=== PATIENT | male | born 1980 | race Caucasian/White ===

== ENCOUNTER 2023-08-16 22:27 | Emergency (ER) | payer SELFPAY ==
--- NOTE | 2023-08-16 22:41 | ED.GENADUL1 ---
HPI HPI - General Adult General Stated complaint: DEHYDRATION Time Seen by Provider: 08/16/23 22:40 History of Present Illness HPI narrative: 42-year-old male to the emergency department chief complaint of episode of confusion. Patient is accompanied by his 2 friends. Earlier in the day the patient was out in the heat and seem to be staggering and confused. They gave the patient to cold showers and he drank some water and seemed improved. Friends brought him to the emergency department for evaluation. Patient reports he feels fine and does not want to be seen. He has no complaints at this time. Related Data Allergies Allergy/AdvReac Type Severity Reaction Status Date / Time No Known Drug Allergies Allergy Verified 08/16/23 22:44 Opioid HPI Opioid Management Most Recent Opioid Data: No Data to Display Review of Systems ROS Status of ROS 10 or more systems reviewed and unremarkable except as noted in history and below Exam Narrative Exam Narrative: VITALS: I have reviewed the triage vital signs. GENERAL: Well developed, well appearing adult in no acute distress. NEURO: Alert and oriented x4. Moves all extremities. Face is symmetric and expressive. Normal gait. EYES: PERRL. No scleral icterus or conjunctival injection. No discharge. HENT: Normocephalic, atraumatic. Hearing is grossly intact. Nares grossly patent and without discharge. Mucous membranes moist. NECK: No JVD. Patient moves neck without restriction. CARDIO: Rhythm regular. Normal rate. No murmur, rub, or gallop. Pulses equal bilaterally in the upper and lower extremity. No lower extremity edema. PULM: Lungs clear to auscultation in all gonzalez. No wheezes, rales, or rhonchi. No conversational dyspnea. No splinting, stridor, or accessory muscle use. GI/: Abdomen is soft and non-tender. Normoactive bowel sounds. EXTREMITIES: Symmetric muscle bulk. No joint swelling. No clubbing, cyanosis, or deformity. SKIN: Warm and dry. Normal turgor. No rash or lesions appreciated. PSYCH: Mood, affect, and interaction is appropriate to the setting. Medical Decision Making MDM Narrative Medical decision making narrative: 42-year-old male to the emergency department with altered mental status complaint. Vital stable, the patient is afebrile. I was called to triage room by nursing staff to evaluate the patient as he does not wish to be seen. Patient is alert and oriented. Does not appear to be under the influence of any drugs or alcohol. His speech content is normal. He is making jokes and laughing. He has a normal gait. No neurologic deficits. He did allow a history and physical exam to be performed. There is no evidence of an acute medical emergency suggested by my history or physical exam. His vitals are normal. Patient would like to leave. The patient was allowed to exit the department with his friends. Discharge Plan Discharge Stand Alone Forms: Portal Instructions Chief Complaint: Altered Mental Status Clinical Impression: Encounter for medical screening examination Patient Disposition: Left Against Medical Advice Time of Disposition Decision: 22:46 Condition: Good Mode of Transportation: Private Vehicle Print Language: Mozambican Referrals: Physician,Non-Staff, MD [Primary Care Provider] - 1 week
[2023-08-16 22:44] VITALS: BP 129/81; PULSE 95; TEMP 36.8; O2SAT 97
--- NOTE | 2023-08-16 22:47 | PC.NURSE ---
Pt presents with friends who state that the pt was not acting right at home so they believe he is having a stroke Pt is loud and sarcastic in his words but allows this nurse and Dr. Hernandez to get vitals and perform an exam Pt is A&Ox4 and ambulates without a problem Pt states he does not need to be here Dr. Hernandez agree's the pt is alert and oriented and does not need to be seen further
== END 2023-08-16 22:47 | disposition left against medical advice (07) ==
PROVIDERS: Emergency Provider Student in an Organized Health Care Education/Training Program
DX: Z53.21 Procedure and treatment not carried out due to patient leaving prior to being seen by health care provider (principal)

== ENCOUNTER 2024-07-20 17:47 | Emergency (ER) | payer SELFPAY ==
--- OUTSIDE RECORDS SUMMARY | 2024-07-20 17:54 | XMS_ITS | Patient Health Record ---
Author Organization [facility] es Address [address] [place] [address] Care Team Providers Care Vitreo Retinal Surgeon Name Role Phone Dani Farr Primary Care Provider Reason For Referral No Information Medications Medication SIG (Take, Route, Frequency, Duration) Notes Start Date End Date Status methylPREDNISolone 4 MG as directed Orally 017 Not-Taking Naproxen 500 MG 1 tablet as needed Orally every 12 hrs Active CeleXA 20 MG 1 tablet Orally Once a day for 30 day(s) 10/28/2016 Active Social History Tobacco Use: Social History Observation Description Date Details (start date - stop date) Current Smoker NA - NA Tobacco Screen: Question Answer Notes Are you a: current smoker How often do you smoke cigarettes? some days, bu t not every day How many cigarettes a day do you smoke? 6-10 How soon after you wake up d o you smoke your first cigarette? after 60 min Are you interested in quitting? Not ready to serjio t Sexual Hx: Question Answer Notes Had sex in the last 12 months (vaginal, oral, or anal)? Yes with Women only Use protection? No Prevention Strategies discussed: Abstinence Have you ever had an STD? No Alcohol Screening: Question Answer Notes Did you have a drink containing alcohol in the p ast year? No Depression Screening (PHQ-2): Question Answer Notes Little interest or pleasure in doing things No Feeling down depressed or hopeless No Problems Problem Type SNOMED Code ICD Code Onset Dates Problem Status W/U Status Risk Notes Problem Mixed anxiety and depressive disorder (853021382) Anxiety and depression (F41.9) Active confirmed Problem Anxiety state (145040058) Acute anxiety (F41.9) Active confirmed Plan Of Treatment No Information Insurance Providers Payer Name Payer Address Payer Phone Subscriber Number Group Number Insured Name Patient Relationship to Insured Coverage Start Date Coverage End Date [facility] [address] [address] [place] [address] [id number] REECE WILSON Self - patient is the insured zMEDICAID C[employer] after [facility]-te rmed [address] [place] [address] [id number] REECE WILSON Self - patient is the insured Medical (General) History Medical History History ICD Code ANXIETY DEPRESSION
[2024-07-20 17:59] VITALS: BP 137/86; PULSE 103; TEMP 37.2; O2SAT 98; BMI 31.9
--- NOTE | 2024-07-20 18:03 | XR_ITS ---
The [address] [address] Patient Name: REECE JAMES MRN: [id number] date: 1980 Sex: M Assigned Patient Location: ER Current Patient Location: ER Accession/Order Number: [id number] Exam Date: 07/20/2024 18:43 Report Date: 07/20/2024 18:46 At the request of: IRWIN MARTIN MD Procedure: XR foot RT min 3V 3 views left foot plain film COMPARISON:None HISTORY: Rolled left ankle this morning. Swelling ACUTE FINDINGS: There is concern for acute fracture involving the base of the second metatarsal. DEGENERATIVE CHANGE: Unremarkable SOFT TISSUE FINDINGS: Unremarkable JOINT EFFUSION: None POSTOP CHANGES: None BONE MINERALIZATION: Adequate XR/XR foot RT min 3V IMPRESSION: Concern for acute fracture involving the base of the second metatarsal. Correlate with site of pain. May correlate with a Lisfranc injury. Impression dictated by: Charan Roque M.D. 07/20/2024 6:46 PM Dictation Location: [place] [address] Electronically authenticated by: [id number] Y Date: 07/20/2024 18:46
--- NOTE | 2024-07-20 18:03 | XR_ITS ---
The [address] [address] Patient Name: REECE JAMES MRN: [id number] date: 1980 Sex: M Assigned Patient Location: ER Current Patient Location: ER Accession/Order Number: [id number] Exam Date: 07/20/2024 18:42 Report Date: 07/20/2024 18:43 At the request of: IRWIN MARTIN MD Procedure: XR ankle RT min 3V 3 views left ankle plain film COMPARISON: None HISTORY: Rolled left ankle. Swollen. ACUTE FINDINGS: None DEGENERATIVE CHANGE: Unremarkable SOFT TISSUE FINDINGS: Lateral soft tissue swelling JOINT EFFUSION: None POSTOP CHANGES: None BONE MINERALIZATION: Adequate XR/XR ankle RT min 3V IMPRESSION: Lateral soft tissue swelling without acute displaced fracture seen. Impression dictated by: Charan Roque M.D. 07/20/2024 6:43 PM Dictation Location: [place] [address] Electronically authenticated by: [id number] Y Date: 07/20/2024 18:43
--- NOTE | 2024-07-20 18:09 | ED_ITS ---
HPI HPI - Extremity Injury (Lower) General Chief Complaint: Extremity Injury, Lower Stated Complaint: LEFT LOWER EXTREMITY INJURY Time Seen by Provider: 07/20/24 17:58 Source: patient Limitations: no limitations History of Present Illness HPI Narrative: 43-year-old male presents to the emergency department for a chief complaint of right foot and ankle pain. This morning he was walking in his house with flip-flops on and the flip-flop got caught on a piece of metal at the threshold of the door when any fell and he twisted his ankle. No other injury was sustained. Its become swollen and it hurts when he walks and he describes the pain is moderate. Related Data Home Medications ?Medication ?Instructions ?Recorded ?Confirmed No Known Home Medications 07/20/2406/30 Allergies Allergy/AdvReac Type Severity Reaction Status Date / Time No Known Drug Allergies Allergy Verified 07/20/24 18:03 Opioid HPI Opioid Management Most Recent Pain and Opioid Data: Last Pain Scale 10 Today, 17:59 Review of Systems ROS Narrative A ten point review of systems is negative except as noted above. PFSH PFSH Social History Little interest or pleasure in doing things: not at all Feeling down, depressed, or hopeless: not at all Exam Narrative Exam Narrative: Nurses note and vital signs reviewed and patient is not hypoxic. General: The patient appears well and in no apparent distress. Patient is resting comfortably on cart. Skin: Warm, dry, no pallor noted. There is no rash noted. Head: Normocephalic, atraumatic Eye: Normal conjunctiva, no drainage, Ears, Nose, Mouth, and Throat: oral mucosa is moist. Nares patent. Cardiovascular: Regular Rate and Rhythm Respiratory: Patient is in no distress, no accessory muscle use Back: non-tender GI: Soft and nontender Musculoskeletal: He has some tenderness on the lateral aspect of his left foot and some swelling over the lateral malleolus. Skin is intact. Knee has good range of motion and no swelling or focal area of tenderness. Neurological: A&O, normal speech Psychiatric: Cooperative Constitutional Vital Signs, click to edit/add: Last Vital Signs Temp 99 F 07/20/24 17:59 Pulse 103 H 07/20/24 17:59 Resp 14 07/20/24 17:59 BP 137/86 07/20/24 17:59 Pulse Ox 98 07/20/24 17:59 O2 Del Method Room Air 07/20/24 17:59 Course Vital Signs Vital signs: Vital Signs Temperature 99 F 07/20/24 17:59 Pulse Rate 103 H 07/20/24 17:59 Respiratory Rate 14 07/20/24 17:59 Blood Pressure 137/86 07/20/24 17:59 Pulse Oximetry 98 07/20/24 17:59 Oxygen Delivery Method Room Air 07/20/24 17:59 Temperature 99 F 07/20/24 17:59 Pulse Rate 103 H 07/20/24 17:59 Respiratory Rate 14 07/20/24 17:59 Blood Pressure 137/86 07/20/24 17:59 Pulse Oximetry 98 07/20/24 17:59 Oxygen Delivery Method Room Air 07/20/24 17:59 MDM - Extremity Injury (Lower) MDM Narrative Medical decision making narrative: X-rays per radiologist are suspicious for second metatarsal fracture of the left foot. CT scan is ordered and is pending and the patient is signed out to Dr. Joseph. Differential Diagnosis Differential diagnosis: Likely other (Sprain, fracture) Imaging Data Foot, ankle x-ray: Radiologist's impression: ITS Impressions Ankle X-Ray 07/20/24 18:03 IMPRESSION: Lateral soft tissue swelling without acute displaced fracture seen. Impression dictated by: Charan Roque M.D. 07/20/2024 6:43 PM Dictation Location: [employer] Electronically authenticated by: [id number] Y Date: 07/20/2024 18:43 Foot X-Ray 07/20/24 18:03 IMPRESSION: Concern for acute fracture involving the base of the second metatarsal. Correlate with site of pain. May correlate with a Lisfranc injury. Impression dictated by: Charan Roque M.D. 07/20/2024 6:46 PM Dictation Location: [employer] Electronically authenticated by: [id number] Y Date: 07/20/2024 18:46 Discharge Plan Discharge Patient Disposition: Still a Patient
--- NOTE | 2024-07-20 18:13 | PC.NURSE ---
Pain to left ankle, swelling noted to left outer ankle, no redness or bruising noted. Skin to left foot and leg pink and warm and pulses present. Ice pack applied.
--- NOTE | 2024-07-20 18:55 | CT_ITS ---
The [address] [address] Patient Name: REECE JAMES MRN: [id number] date: 1980 Sex: M Assigned Patient Location: ED.MAIN Current Patient Location: ED.MAIN Accession/Order Number: [id number] Exam Date: 07/20/2024 19:30 Report Date: 07/20/2024 19:48 At the request of: IRWIN MARTIN MD Procedure: CT foot RT wo con CT right foot without contrast TECHNIQUE: The CT exam was performed using one or more the following dose reduction techniques: Automated exposure control, adjustment of the MA and/or Kv according to patient size, or use of the iterative reconstruction technique. COMPARISON: Concern for second metatarsal fracture HISTORY: Left foot pain Nondisplaced posterior malleolus fracture identified. This extends into the distal tibiofibular syndesmosis. Lateral soft tissue swelling. Lateral malleolus intact. Medial malleolus intact. The talus intact. The calcaneus intact. Cuboid intact. Tiny fracture of the lateral portion of the lateral cuneiform present. Navicular intact. Mildly displaced fracture of the medial aspect of the base of the second metatarsal identified. Nondisplaced fracture of the base of the fourth metatarsal identified. The middle and medial cuneiforms intact. The phalanges intact. CT/CT foot RT wo con IMPRESSION: Fracture of the base of the second metatarsal. concern for Lisfranc injury. Nondisplaced fracture base of the fourth metatarsal. Distal lateral corner fracture of the lateral cuneiform. Nondisplaced posterior malleolus fracture of the tibia. This extends into the syndesmosis. . Impression dictated by: Charan Roque M.D. 07/20/2024 7:48 PM Dictation Location: [facility] Electronically authenticated by: [id number] Y Date: 07/20/2024 19:48
[2024-07-20] MEDS: OXYCODONE HCL/ACETAMINOPHEN 5MG/325MG 1 TAB PO (19:19)
[2024-07-20] MEDS: ONDANSETRON 4 MG RAPDIS TABLET SL (19:19)
--- NOTE | 2024-07-20 20:15 | ED.LOWEXI1 ---
HPI HPI - Extremity Injury (Lower) General Chief Complaint: Extremity Injury, Lower Stated Complaint: LEFT LOWER EXTREMITY INJURY Time Seen by Provider: 07/20/24 17:58 Source: patient Limitations: no limitations History of Present Illness HPI Narrative: This 43-year-old male was signed out to me at shift change pending CT scan of the left lower extremity. Patient was seen and examined. He has diffuse pain in his left foot and lateral malleolus with some mild bruising over the midfoot. Pulses are brisk. He is able to move his toes but this causes him pain. He was medicated with a dose of Percocet with mild relief and then given a dose of Dilaudid. CT scan of the left foot shows a fracture of the base of the second metatarsal with concern for Lisfranc injury with nondisplaced fracture of the base of the fourth metatarsal distal lateral corner fracture of the lateral cuneiform and nondisplaced posterior malleolus fracture of the tibia that extends into the syndesmosis. Call was placed to Dr. Borjas. He will see the patient in consult. The patient was placed in a posterior splint for immobilization and given crutches for ambulation. I explained to him that the splint needs to stay in place and he will need to follow-up closely with Dr. Conteh Related Data Home Medications ?Medication ?Instructions ?Recorded ?Confirmed No Known Home Medications 07/20/24 07/20/24 Allergies Allergy/AdvReac Type Severity Reaction Status Date / Time No Known Drug Allergies Allergy Verified 07/20/24 18:03 Opioid HPI Opioid Management Most Recent Pain and Opioid Data: Last Pain Scale 8 Today, 20:18 Last MAR Pain Assessment Today, 19:19 PFSH PFSH Social History Little interest or pleasure in doing things: not at all Feeling down, depressed, or hopeless: not at all Exam Constitutional Vital Signs, click to edit/add: Last Vital Signs Temp 99 F 07/20/24 17:59 Pulse 103 H 07/20/24 17:59 Resp 14 07/20/24 17:59 BP 137/86 07/20/24 17:59 Pulse Ox 98 07/20/24 17:59 O2 Del Method Room Air 07/20/24 17:59 Course Vital Signs Vital signs: Vital Signs Temperature 99 F 07/20/24 17:59 Pulse Rate 103 H 07/20/24 17:59 Respiratory Rate 14 07/20/24 17:59 Blood Pressure 137/86 07/20/24 17:59 Pulse Oximetry 98 07/20/24 17:59 Oxygen Delivery Method Room Air 07/20/24 17:59 Temperature 99 F 07/20/24 17:59 Pulse Rate 103 H 07/20/24 17:59 Respiratory Rate 14 07/20/24 17:59 Blood Pressure 137/86 07/20/24 17:59 Pulse Oximetry 98 07/20/24 17:59 Oxygen Delivery Method Room Air 07/20/24 17:59 Discharge Plan Discharge Chief Complaint: Extremity Injury, Lower Clinical Impression: Acute pain of left foot, Foot fracture, left, Ankle fracture, left Patient Disposition: Home, Self-Care Time of Disposition Decision: 20:49 Condition: Good Prescriptions / Home Meds: No Action No Known Home Medications Print Language: Greenlandic Instructions: Ankle Fracture (ED), Crutch Instructions (ED), Foot Fracture in Adults (ED), Splint Care (ED) Referrals: Physician,Non-Staff, MD [Primary Care Provider] - 1 week Damion Borjas DPM [Physician, Podiatry] - As soon as possible
[2024-07-20] MEDS: HYDROMORPHONE HCL 1 MG/ML CARTRIDGE IM (20:18)
[2024-07-20] MEDS: OXYCODONE HCL/ACETAMINOPHEN 5MG/325MG 2 TAB PO (20:59)
== END 2024-07-20 21:09 | disposition home or self-care (01) ==
PROVIDERS: Emergency Provider Emergency Medicine
DX: S92.322A Displaced fracture of second metatarsal bone, left foot, initial encounter for closed fracture (principal); S92.342A Displaced fracture of fourth metatarsal bone, left foot, initial encounter for closed fracture; X50.1XXA Overexertion from prolonged static or awkward postures, initial encounter; S92.222A Displaced fracture of lateral cuneiform of left foot, initial encounter for closed fracture; S82.892A Other fracture of left lower leg, initial encounter for closed fracture; M79.672 Pain in left foot; W18.39XA Other fall on same level, initial encounter
CPT/HCPCS: 29515; 73610; 73630; 73700; 96372; 99285; J1171; Q0162